=== PATIENT | male | born 1965 | race Two or more races ===

== ENCOUNTER 2019-05-10 22:02 | Emergency (ER) | payer OTHER ==
[~2019-05-10] VITALS: Ht 172.7 cm; Wt 81.0 kg
[2019-05-10 23:38] VITALS: BP 143/102
[2019-05-11 01:24] LABS: BASOPHILS % 0.7 % (0.0-2.0); EOSINOPHILS % 0.5 % (0.0-5.0); HEMATOCRIT. 38.9 % (42.0-52.0); HEMOGLOBIN. 12.7 g/dL (14.0-18.0); LYMPHOCYTES % 18.3 % (20.0-50.0); MEAN CORPUSCULAR HEMOGLOBIN 22.3 pg (28.0-32.0); MEAN PLATELET VOLUME 6.9 fl (7.4-10.4); MONOCYTES % 11.2 % (2.0-8.0); NEUTROPHILS % 69.3 % (40.0-76.0); PLATELET 274 x1000/uL (130-400); RED BLOOD CELL COUNT 5.73 mill/uL (4.7-6.1); RED CELL DISTRIBUTION WIDTH 17.6 % (11.6-14.6)
[2019-05-11 01:29] LABS: CHLORIDE 102 mEq/L (98-107)
[2019-05-11 01:34] LABS: ETHANOL BLOOD < 10 mg/dL
[2019-05-11 02:16] LABS: PLATELET ESTIMATE NORMAL
[2019-05-11] MEDS ORDERED: CHLORDIAZEPOXIDE 25MG CAPSULE PO ONE (05:00)
[2019-05-11] MEDS ORDERED: CHLORDIAZEPOXIDE 10MG CAPSULE PO ONE (05:00)
== END 2019-05-11 05:28 | disposition home or self-care (01) ==
LOC: ER 22:02
DX: F10.239 Alcohol dependence with withdrawal, unspecified (principal); R07.89 Other chest pain; R42 Dizziness and giddiness; I10 Essential (primary) hypertension; Y90.0 Blood alcohol level of less than 20 mg/100 ml
CPT/HCPCS: 36415; 80053; 80320; 84484; 85025; 93005; 99284; G0480